=== PATIENT | female | born 1995 | race Caucasian/White ===

== ENCOUNTER 2023-03-26 09:27 | Inpatient (IN) | payer SELFPAY ==
[2023-03-26] MEDS ORDERED: Tranexamic Acid 1,000 MG/10 ML VIAL IVP PRN (10:13)
[2023-03-26] MEDS ORDERED: Ibuprofen 800 MG TAB PO PRN (10:13)
[2023-03-26] MEDS ORDERED: Lidocaine 1% (PF) 30 ML VIAL SC PRN (10:13)
[2023-03-26] MEDS ORDERED: Methylergonovine 0.2 MG/ML VIAL IM PRN (10:13)
[2023-03-26] MEDS ORDERED: Ondansetron PF 4 MG/2 ML Vial IVP PRN ×3 (10:13→12:14)
[2023-03-26] MEDS ORDERED: Promethazine HCl 25 MG/ML VIAL IM PRN ×2 (10:13→12:14)
[2023-03-26] MEDS ORDERED: Acetaminophen 500 MG TAB PO PRN (10:13)
[2023-03-26] MEDS ORDERED: hydrALAZINE 20 MG/ML VIAL SLOW IVP PRN ×2 (10:13→12:29)
[2023-03-26] MEDS ORDERED: Oxytocin 30 units/NS 500 ML 500 ML IV SCH ×2 (10:15)
[2023-03-26] MEDS ORDERED: Lactated Ringer's 1,000 ML IV SCH (10:15)
[2023-03-26 10:31] LABS: Hematocrit 35.9 % (34.9-44.5); Hemoglobin 12.4 g/dL (12.0-15.5); Mean Corpuscular HGB CONC 34.5 g/dL (32.0-36.0); Mean Corpuscular Hemoglobin 28.5 pg (27.0-33.0); Mean Corpuscular Volume 82.5 fl (81.6-98.3); Mean Platelet Volume 11.5 fl (7.4-10.4); Platelet Count 278 10x3/uL (150-450); RBC Distribution Width 13.2 % (11.5-14.5); Red Blood Cell (RBC) Count 4.35 10x6/uL (3.90-5.03); White Blood Cell (WBC) Count 24.3 10x3/uL (3.5-10.5)
[2023-03-26] MEDS ORDERED: Famotidine/PF 20 mg/2ml Vial SLOW IVP PRN (10:45)
[2023-03-26] MEDS ORDERED: CEFAZOLIN 2 GM VIAL ONE (10:45)
[2023-03-26] MEDS ORDERED: CEFAZOLIN 2 GM in Sodium Chloride 0.9% 100 ML IVPB SCH (10:45)
[2023-03-26] MEDS ORDERED: Azithromycin 500 MG in Sodium Chloride 0.9% 250 ML 250 ML IVPB SCH (10:45)
[2023-03-26] MEDS ORDERED: Bicitra 30 ML UDCUP PO PRN (10:45)
[2023-03-26 10:58] LABS: HBSAg Index 0.18 S/CO (0-0.99); Hep B Surf Ag - L&D Non-Reactive S/CO (NonReactive)
[2023-03-26 10:59] LABS: HIV (1/2) Antibody/Antigen Non-Reactive (NonReactive); HIV 1/2 INDEX 0.09 S/CO (<1.00)
[2023-03-26 11:00] LABS: Syphilis Antibody Nonreactive (Nonreactive); Syphilis Antibody Index 0.05 S/CO (<1.00 Non-Reactive)
[2023-03-26] MEDS ORDERED: Morphine PF 10 MG/10 ML VIAL ONE (11:02)
[2023-03-26] MEDS ORDERED: Dexmedetomidine 200 MCG/2 ML VIAL ONE (11:02)
[2023-03-26] MEDS ORDERED: Sodium Chloride 0.9% 10 ML ONE (11:03)
[2023-03-26] MEDS ORDERED: Ondansetron PF 4 MG/2 ML Vial ONE (11:32)
[2023-03-26] MEDS ORDERED: Phenylephrine 40 MG/NS 250 ML 250 ML ONE (11:32)
[2023-03-26] MEDS ORDERED: Oxytocin 10 UNITS/ML VIAL ONE (11:32)
[2023-03-26] MEDS ORDERED: Dexamethasone 4 mg/ml Vial ONE (11:32)
[2023-03-26] MEDS ORDERED: Ketorolac Tromethamine 30 MG/ML VIAL ONE (11:32)
[2023-03-26 11:51] LABS: Analyzer IN Cardio CS NICU; RapidComm Collect By OR NURSE; pH (Cord, venous) 7.204 (7.250-7.350)
[2023-03-26 11:52] LABS: Analyzer IN Cardio CS NICU
[2023-03-26] MEDS ORDERED: Moisturizing Cream (Eucerin) 113 GM JAR TOP PRN (12:14)
[2023-03-26] MEDS ORDERED: fentaNYL 50 mcg/mL 1 mL Vial SLOW IVP PRN (12:14)
[2023-03-26] MEDS ORDERED: Naloxone HCl 0.4 mg/ml Vial IVP PRN ×2 (12:14)
[2023-03-26] MEDS ORDERED: Promethazine HCl 25 MG SUPP PR PRN (12:14)
[2023-03-26] MEDS ORDERED: Meperidine HCl/PF 25 MG/ML VIAL SLOW IVP PRN (12:14)
[2023-03-26] MEDS ORDERED: diphenhydrAMINE 50 MG/ML VIAL IVP PRN (12:14)
[2023-03-26] MEDS ORDERED: Naloxone HCl 0.4 mg/ml Vial IV PRN (12:14)
[2023-03-26] MEDS ORDERED: Communication Order-Pharmacy FS SCH (12:15)
[2023-03-26] MEDS ORDERED: Simethicone Chewable 80 MG TAB PO PRN (12:29)
[2023-03-26] MEDS ORDERED: Bisacodyl 10 MG SUPP PR PRN (12:29)
[2023-03-26] MEDS ORDERED: Lanolin Ointment 7 GM TUBE TOP PRN (12:29)
[2023-03-26] MEDS ORDERED: Boostrix 0.5 ML (Tdap) VIAL (>/=7 yrs of age) IM ONE (12:29)
[2023-03-26 15:43] VITALS: BMI 25.2
[2023-03-26] MEDS: Ketorolac Tromethamine 30 MG/ML VIAL IVP SCH (19:00)
[2023-03-26] MEDS: Docusate 100 MG CAP PO SCH (20:36)
[2023-03-27] MEDS ORDERED: HYDROcodone/Acetaminophen 5/325 mg Tablet PO PRN (00:15)
[2023-03-27] MEDS: Ketorolac Tromethamine 30 MG/ML VIAL IVP SCH ×3 (00:46→11:50)
[2023-03-27 04:19] LABS: Hematocrit 26.4 % (34.9-44.5); Mean Corpuscular HGB CONC 34.1 g/dL (32.0-36.0); Mean Corpuscular Hemoglobin 28.5 pg (27.0-33.0); Mean Corpuscular Volume 83.5 fl (81.6-98.3); Mean Platelet Volume 11.3 fl (7.4-10.4); Platelet Count 213 10x3/uL (150-450); RBC Distribution Width 13.5 % (11.5-14.5); Red Blood Cell (RBC) Count 3.16 10x6/uL (3.90-5.03); White Blood Cell (WBC) Count 24.2 10x3/uL (3.5-10.5)
[2023-03-27] MEDS: Prenatal Vitamin 1 TAB PO SCH (08:15)
[2023-03-27] MEDS: Docusate 100 MG CAP PO SCH ×2 (08:15→21:27)
[2023-03-27] MEDS: Ibuprofen 800 MG TAB PO SCH ×2 (16:29→19:00)
[2023-03-27] MEDS: HYDROcodone/Acetaminophen 5/325 mg Tablet PO PRN (23:49)
[2023-03-28] MEDS: Ibuprofen 800 MG TAB PO SCH ×3 (01:44→17:02)
[2023-03-28 07:43] LABS: #Basophils 0.1 10x3/uL (0.0-0.2); #Eosinphils 0.2 10x3/uL (0.0-0.5); #Monocytes 1.3 10x3/uL (0.0-1.1); #Neutrophils 13.2 10x3/uL (1.5-8.4); %Basophils 0.5 % (0.0-2.0); %Eosinophils 0.9 % (0.0-6.0); %Lymphocytes 13.6 % (18.0-47.0); %Monocytes 7.6 % (0.0-10.0); %Neutrophils 75.8 % (40.0-75.0); Hematocrit 28.5 % (34.9-44.5); Hemoglobin 9.8 g/dL (12.0-15.5); Mean Corpuscular HGB CONC 34.4 g/dL (32.0-36.0); Mean Corpuscular Hemoglobin 29.3 pg (27.0-33.0); Mean Corpuscular Volume 85.3 fl (81.6-98.3); Mean Platelet Volume 10.7 fl (7.4-10.4); Platelet Count 226 10x3/uL (150-450); RBC Distribution Width 13.9 % (11.5-14.5); Red Blood Cell (RBC) Count 3.34 10x6/uL (3.90-5.03); White Blood Cell (WBC) Count 17.3 10x3/uL (3.5-10.5)
[2023-03-28] MEDS: Docusate 100 MG CAP PO SCH ×2 (07:55→21:08)
[2023-03-28] MEDS: Prenatal Vitamin 1 TAB PO SCH (07:55)
[2023-03-28] MEDS: HYDROcodone/Acetaminophen 5/325 mg Tablet PO PRN (14:30)
[2023-03-29] MEDS: Ibuprofen 800 MG TAB PO SCH ×2 (01:30→08:08)
[2023-03-29 07:50] VITALS: BP 121/73; TEMP 97.7
[2023-03-29] MEDS: Docusate 100 MG CAP PO SCH (08:08)
[2023-03-29] MEDS: Prenatal Vitamin 1 TAB PO SCH (08:08)
== END 2023-03-29 11:50 | disposition home or self-care (01) | DRG 788 ==
LOC: CSHLD/OP 09:27 → CSHLD 11:00 → CSHPP 15:00
PROVIDERS: ADMIT Obstetrics & Gynecology; ATTEND Obstetrics & Gynecology
PROC: 10D00Z1 Extraction of Products of Conception, Low, Open Approach (ICD-10-PCS; principal; 2023-03-26)
PROC: 4A133R1 Monitoring of Arterial Saturation, Peripheral, Percutaneous Approach (ICD-10-PCS; 2023-03-26)
PROC: 3E033XZ Introduction of Vasopressor into Peripheral Vein, Percutaneous Approach (ICD-10-PCS; 2023-03-26)
PROC: 3E0334Z Introduction of Serum, Toxoid and Vaccine into Peripheral Vein, Percutaneous Approach (ICD-10-PCS; 2023-03-27)
DX: O42.02 Full-term premature rupture of membranes, onset of labor within 24 hours of rupture (principal); O34.211 Maternal care for low transverse scar from previous cesarean delivery; Z88.2 Allergy status to sulfonamides; O76 Abnormality in fetal heart rate and rhythm complicating labor and delivery; O77.0 Labor and delivery complicated by meconium in amniotic fluid; Z3A.39 39 weeks gestation of pregnancy; Z37.0 Single live birth; Z67.90 Unspecified blood type, Rh positive
CPT/HCPCS: 36415; 51702; 82805; 85025; 85027; 85461; 86780; 86850; 86900; 86901; 87340; 87389; 90384; 96372; 99285; J0456; J1100; J1885; J2274; J2405; J2590; J7050; Q9968